=== PATIENT | female | born 1995 | race Caucasian/White ===

== ENCOUNTER 2024-08-29 10:07 | Inpatient (IN) | payer OTHER, SELFPAY ==
--- NOTE | 2024-08-29 11:26 | P.HPOB_ITS ---
OB HPI Date/Time Date of admission: 08/29/24 Date Patient Seen: 08/29/24 Time Patient Seen: 11:00 History of Present Condition Chief complaint: obs of labor : 1 Para: 0 Estimated Date of Delivery: 08/30/24 Estimated Gestational Age (weeks): 39.6 Narrative: Sigifredo Weller is a 28 year old female @ 39wks 6 days by LMP concordant with 11wks US here for evaluation of labor. Contractions started last night, got more intense early this AM and xander arrived at 0500. Since then, they have steadily increased in frequency and intensity. Now breathing through strong contractions every 3 minutes. +FM. No vaginal bleeding or leaking of fluid. Uncomplicated care with CNMs. Planning low intervention . Accompanied by supportive , Garrett, and Miriam terrell. History of Present care: good care, initiated at week # (11w), number of visits (7) and pounds weight gain (45) Dating criteria: LMP confirmed by 1st trimester US Ultrasounds: normal 1st trimester US and normal mid trimester US Obstetrical complications: none Medical complications: other (Hx LEEP) Preadmission Labs Blood type: A (-) negative -: Antibody screen: negative, Cystic fibrosis screen: negative, GBS status: negative, HBsAG: negative, HIV: negative, HSV 1: negative, HSV 2: negative and RPR/VDLR: negative -: Chlamydia screen: not detected and Gonorrhea screen: not detected -: Rubella: not immune and Varicella: immune HCT: 36.4 HCAB: negative PAP: Normal (2021) Cell-free DNA: Negative x3, XY Urine: Neg UC 1 hr GTT: 92 Prior (ies) Hx # Term Pregnancies: 1 Hx # Pregnancies: 0 Number of Living Children: 0 Multiple births: 0 Spontaneous abortions: 0 Ectopic pregnancies: 0 Elective abortions: 0 Evaluation Evaluation Baseline heart rate: 140 Variability: Moderate (11-25) monitor accelerations: Present Monitor Decelerations: Absent Contraction Frequency (minutes): 2 (1-3) Status: Category l Dilation (cm): 6.5 Effacement (%): 90 Dilation: >/=5 cm Effacement: >/=80% station: -1 Position of cervix: mid Consistency: soft Lawrence score: 11 [facility] Medical History (Updated 08/29/24 @ 12:27 by Mary Smith CNM, REI) Hx LEEP (loop electrosurgical excision procedure), cervix, HPV (human papilloma virus) anogenital infection Migraines, neuralgic Surgical History (Updated 08/29/24 @ 11:51 by Mary Smith CNM, REI) History of appendectomy Family History (Updated 08/29/24 @ 12:27 by Mary Smith CNM, REI) Father Diabetes mellitus Social History (Updated 08/29/24 @ 12:28 by Mary Smith CNM, REI) marital status: household members: spouse lives independently: Yes housing: house education level: college occupational status: employed Smoking Status: Never smoker Meds Home Medications and Allergies Home Medications Medication Instructions Recorded Confirmed Type vit no.133-ferrous tab PO 08/29/24 History fumarate 28 mg-folic acid 800 mcg tablet () Allergies Allergy/AdvReac Type Severity Reaction Status Date / Time Penicillins Allergy hives Verified 08/29/24 13:17 Review of Systems Review of Systems ROS: Yes All systems reviewed with the patient and are negative except as otherwise documented OB Exam Vital signs Blood Pressure: 114/67 Pulse Rate: 91 Respiratory Rate: 20 Temperature: 96.4 F Resp Effort & Inspection: normal respiratory effort and able to speak in complete sentences Auscultation: clear to auscultation bilaterally Cardio Rate: regular rate Rhythm: regular rhythm Heart Sounds: S1 normal and S2 normal Presentation: vertex Objective Labs 08/29/24 12:08 Assessment and Plan Assessment and Plan Assessment and Plan narrative: A: Term nullipara Active labor Rh Negative status GBS negative Rubella non-immune Cat I FHR P: Admit, routine labor orders. Expectant management of labor. May switch to intermittent auscultation. Labor support PRN. Reassess in 4 hours or sooner, PRN. Time-Based Coding :: [TOTAL MINUTES] spent with patient and on the chart (including review of chart, obtaining history, exam, reviewing outside data, placing orders, documenting exam and treatment plan, and counseling patient) on [DATE].
[2024-08-29 12:22] LABS: Add Manual Diff / Slide Review NO; Basophils Absolute Auto 100 /uL (0-100); Basophils Percent Auto 0.4 % (0-2); Eosinophils Absolute Auto 100 /uL (0-450); Eosinophils Percent Auto 0.5 % (2-4); Hematocrit 39.2 % (36-46); Hemoglobin 13.3 g/dL (12.0-16.0); Lymphocytes Absolute Auto 1200 /uL (1100-4500); Mean Corpuscular Hemoglobin 31.6 PG (26-34); Mean Corpuscular Volume 92.7 fL (80-100); Monocytes Absolute Auto 1400 /uL (0-900); Monocytes Percent Auto 7.9 % (3-14); Neutrophils Absolute Auto 14500 /uL (1500-7000); Neutrophils Percent Auto 84.2 % (50-75); Platelet Count 264 X10^3/uL (150-400); Red Blood Cell Count 4.23 X10^6/uL (4.0-5.2); White Blood Cell Count 17.2 X10^3/uL (4.5-11.0)
[2024-08-29 12:31] VITALS: BP 114/67
[2024-08-29 13:06] VITALS: PULSE 91; RESP 20; TEMP 35.8
--- NOTE | 2024-08-29 14:18 | PM.OBPNLAB ---
Date/Time Date Patient Seen: 08/29/24 Time Patient Seen: 13:35 Pain Control Pain control: tolerating well Comments: Laboring well in the tub with continuous labor support. Feeling more pressure, lower in her pelvis. No urge to push yet. VS: BP 121/72, HR 91, T 36.1C Temporal Pelvic Exam Dilation (cm): 9 Effacement (%): 100 station: 0 Amniotic membrane status: Intact Contractions Monitor mode: External Contraction frequency (min): 5 Contraction duration (min): 1 Contraction pattern: Regular Contraction intensity: Strong/Firm Status Heart Rate Baseline: 135 Comments: reassuring by intermittent auscultation Assessment and Plan Assessment: active labor Plan: continuous present management Comments: Anticipate second stage soon.
[2024-08-29] MEDS: LACTATED RINGERS 1,000 ML 100 ML IV (17:29)
[2024-08-29] MEDS: KETOROLAC 30 MG/ML VIAL 15 MG IV (21:08)
--- NOTE | 2024-08-29 21:40 | P.PCNOB_ITS ---
Labor & Delivery Delivery date: 08/29/24 Delivery Time: 20:33 Intrapartal Events: Prolonged 2nd Stage > 2.5 hours Delivery monitor: external FHT Route of delivery: Delivery repair: vicryl Quantitative Blood Loss: 172 Anesthesia Type: None Narrative: Spontaneous labor admitted in active labor. Labor progressed well. Labored in tub, and upright on toilet. Able to change positions as desired for comfort. Strong request for labor support from CNMs. Storm Window Installer and present providing continuos labor support. While laboring on toilet having occasional urge to bear down. She was feeling exhausted and unable to continue laboring. Back to bed, requested SVE and epidural. SVE done and anterior lip reduced, coached pushing initiated at 1750. Anesthesia in to place epidural, declined by pt. Pushed effectively for two hours contractions began to space out, up to bathroom to attempt voiding, unable to void so resumed pushing hands and knees and then to sidelying/tilted left. Considered adding pitocin, so continuous monitoring reapplied. Pushed for three hours five minutes total to NSVB at 2033. FHR was Cat 2 throughout last hour of 2nd stage. Baby restituted KLARISSA but unable to delivery shoulder. While attempting maneuver, baby turned to JUVENTINO when compound presentation of nuchal hand made visible. Shoulders delivered easily after delivering right arm. Vigorous baby at placed on maternal abdomen when she was ready to receive him/her. Apgars 9/9. They remained skin to skin while cord was cut and placenta was delivered. Placenta delivered spontaneously with maternal efforts and appeared to be intact. 3 vessel cord clamped and cut by father of baby at 10 minutes of life after cord pulsing had stopped. Cord blood collected for blood typing. Perineum inspected first degree perineal laceration, repaired with lidocaine and 3-0 Vicryl . Shallow periurethral lacerations noted bilaterally. Blood loss measured QBL 172 mL. Mom and baby left stable and are thrilled to meet their baby. Mary MINAYA, CNM, IBCLC [place] Baby 1: Infant gender: Male Presentation: vertex Placenta delivery description: Spontaneous Cord Vessel Description: 3 Vessels score (1 min): 9 score (5 min): 9 weight: 4.01 kg Plan for aftercare: Routine care
[2024-08-29] MEDS: OXYTOCIN PREMIX 30 UNIT/500 ML PLAST..BAG 200 UNIT IV (22:30)
--- NOTE | 2024-08-30 02:08 | P.DS_ITS ---
Discharge Providers Provider Date of admission: 08/29/24 10:07 Discharge Date: 08/30/24 Consults: 08/29/24 12:12 Consult to Anesthesiology Urgent Comment: Consulting Provider: Anesthesiologist Reason for consultation: Epidural 08/30/24 21:31 Consult to Business Services Director Routine Comment: Discharge provider: Mary Smith CNM, ARNP Summary Hospital Course Diagnoses: O70 Hospital Course: Admitted in active labor. Progressed without intervention to NSVB after 3 hours of active pushing. QBL 172 mL. 1st degree laceration repaired. Normal course. Baby transferred to NICU so Sigifredo requested early discharge. Peripartum Data Delivery Method: Natural Vaginal Laceration Description: Periurethral - 1st Degree and Perineal - 1st Degree 1: Gender: Male Disposition of : NICU Status at Discharge Cognitive/behavioral status at discharge: oriented and calm Functional status at discharge: independent ambulation Overall status at discharge: patient is progressing back to baseline Time Spent with Patient Time attestation: Total time spent providing and/or coordinating discharge services: Time spent: Less than 30 minutes Specific discharge activities: discharge teaching Objective Labs 08/29/24 12:08 Labs: Laboratory Results - last 24 hr 08/29/24 08/29/24 11:40 12:08 WBC 17.2 H RBC 4.23 Hgb 13.3 Hct 39.2 MCV 92.7 MCH 31.6 MCHC 34.0 RDW 14.0 Plt Count 264 Neut % (Auto) 84.2 H Lymph % (Auto) 7.0 L [place] % (Auto) 7.9 Eos % (Auto) 0.5 L Baso % (Auto) 0.4 Neut # (Auto) 17649 H Lymph # (Auto) 1200 [place] # (Auto) 1400 H Eos # (Auto) 100 Baso # (Auto) 100 Blood Type A Negative Antibody Screen Positive Antibody Identification Anti-D Exam Vital Signs (past 8 hours): 115/57 87 bpm 98.6 Other: Fundus firm at U, midline. Lochia moderate Perineum 1st degree laceration with moderate edema Discharge Plan Discharge Plan Patient Disposition: Home Discharge orders & Medications Prescriptions: Continued 28-800 mg-mcg Tablet PO Follow up/Referrals: Mary Smith CNM, ARNP [Advanced Construction Director] - 2 Weeks (and 6 weeks, as scheduled) Diet/Activity/Treatments Diet: Diet as Tolerated and Regular Diet comment: Increase fiber, fluid, protein for best healing, stooling Activity: As low negrete as possible Cold/Heat Therapy: as needed Skin/Wound/Dressing Care Skin care: usual care Report to your healthcare provider any signs of infection, such as:: chills, fever, unusual drainage and unusual redness Visit Report/Discharge Packet Stand Alone Forms: Patient Portal/API, Stroke Signs & Symptoms Discharge Data Attending Provider: Mary Smith Admit Date/Time: 08/29/24 10:07
[2024-08-30] MEDS: IBUPROFEN 600 MG TABLET PO (02:39)
[2024-08-30] MEDS: ACETAMINOPHEN 325 MG TABLET 650 MG PO (02:40)
== END 2024-08-30 02:40 | disposition home or self-care (01) | DRG 807 ==
PROVIDERS: Admitting Provider Advanced Practice Midwife; Referring Provider Advanced Practice Midwife; Visit Provider Advanced Practice Midwife
DX: O63.1 Prolonged second stage (of labor) (principal); Z37.0 Single live birth; O70.0 First degree perineal laceration during delivery; Z3A.39 39 weeks gestation of pregnancy; Z67.11 Type A blood, Rh negative; Z28.39 Other underimmunization status
CPT/HCPCS: 36415; 59050; 85025; 86850; 86870; 86900; 86901; G0378; G0379; J1885; J2590